=== PATIENT | female | born 1990 | race Caucasian/White ===

== ENCOUNTER 2017-04-13 22:56 | Emergency (ER) | payer MEDICAID ==
[~2017-04-13] VITALS: Ht 149.9 cm; Wt 55.3 kg
[2017-04-13 23:13] VITALS: BP_SYST 134
[2017-04-13] MEDS ORDERED: NACL 0.9% 1,000 ML IV ONE (23:46)
[2017-04-14 00:17] LABS: BASOPHILS # (AUTO) 0.1 K/uL (0.0-0.2); BASOPHILS % (AUTO) 0.6 % (0.0-2.0); EOSINOPHILS # (AUTO) 0.1 K/uL (0.0-0.4); EOSINOPHILS % (AUTO) 0.5 % (0.0-4.0); HEMATOCRIT 50.2 % (36-48); HEMOGLOBIN 16.6 g/dL (12.0-16.0); LYMPHOCYTES # (AUTO) 1.8 K/uL (1.0-5.5); LYMPHOCYTES % (AUTO) 14.7 % (20.5-51.5); MEAN CORPUSCULAR HEMOGLOBIN 28 pg (27-31); MEAN CORPUSCULAR HGB CONC 33 % (32-36); MEAN CORPUSCULAR VOLUME 85 fL (79.0-98.0); MONOCYTES # (AUTO) 0.2 K/uL (0.0-1.0); NEUTROPHILS # (AUTO) 9.9 K/uL (1.8-7.7); NEUTROPHILS % (AUTO) 82.2 % (40.0-70.0); PLATELET COUNT (AUTO) 334 K/uL (130-430); RED BLOOD CELL COUNT(AUTO) 5.91 MIL/uL (4.2-6.2); WHITE BLOOD COUNT (AUTO) 12.1 K/uL (4.8-10.8)
[2017-04-14 00:24] LABS: ANION GAP 11 (5-15); CALCIUM 9.8 mg/dL (8.4-11.0); CHLORIDE 102 mmol/L (98-107); CREATININE 1.01 mg/dL (0.55-1.30); GLUCOSE 104 mg/dL (70-99); POTASSIUM 3.9 mmol/L (3.5-5.1); SODIUM SERUM 138 mmol/L (136-145); UREA NITROGEN, BLOOD 11 mg/dL (8-21)
[2017-04-14 00:26] LABS: SALICYLATE 1 mg/dL (3-30)
[2017-04-14 00:28] LABS: GFR AFRICAN AMERICAN 85 mL/min (>90)
[2017-04-14 00:29] LABS: BILIRUBIN,URINE NEGATIVE (NEGATIVE); BLOOD, URINE NEGATIVE (NEGATIVE); CLARITY/URINE CLEAR (CLEAR); COLOR,URINE YELLOW (YELLOW); GLUCOSE,URINE NEGATIVE (NEGATIVE); KETONES,URINE 1+ (NEGATIVE); LEUKOCYTE ESTERASE ,URINE NEGATIVE (NEGATIVE); NITRITE, URINE NEGATIVE (NEGATIVE); PROTEIN URINE 1+ (NEGATIVE); UROBILINOGEN,URINE 0.2 (0.2-1.0)
[2017-04-14 00:30] LABS: ALANINE AMINOTRANSFERASE 27 U/L (12-78); ASPARTATE AMINOTRANSFERASE 20 U/L (10-37); TOTAL BILIRUBIN 0.7 mg/dL (0.0-1.0); TOTAL PROTEIN, SERUM 8.5 g/dL (6.4-8.3)
[2017-04-14 00:36] LABS: ACETAMINOPHEN < 1 ug/mL (1-30)
[2017-04-14 00:37] LABS: ALCOHOL, BLOOD < 3 mg/dL (<10)
[2017-04-14 00:39] LABS: BACTERIA,URINE FEW /HPF (None Seen); HYALINE CASTS, URINE 0-10 /LPF (None Seen); MUCUS,URINE 1+ /LPF (None Seen); RBC,URINE 0-3 /HPF (0-3); URINE AMORPHOUS URATE 1+ /HPF (None Seen)
[2017-04-14 00:40] LABS: BARBITURATE, URINE NEGATIVE (NEG <=200); BENZODIAZEPINE, URINE NEGATIVE (NEG <=150); CANNABINOID, URINE NEGATIVE (NEG <=50); COCAINE, URINE NEGATIVE (NEG <=150); METHAMPHETAMINES SCREEN,URINE NEGATIVE (NEG <=500); OPIATE, URINE NEGATIVE (NEG <=100); PHENCYCLIDINE SCREEN,URINE NEGATIVE (NEG <=25); UR TRICYCLIC ANTIDEPRESSANTS NEGATIVE (NEG <=300); URINE AMPHETAMINE POSITIVE (NEG <=500); URINE METHADONE NEGATIVE (NEG <=200); URINE OXYCODONE SCREEN NEGATIVE (NEG <=100); URINE PROPOXYPHENE SCREEN NEGATIVE (NEG <=300)
[2017-04-14 01:15] VITALS: BP_SYST 128
== END 2017-04-14 01:15 | disposition home or self-care (01) ==
LOC: SED 22:56
DX: Z00.00 Encounter for general adult medical examination without abnormal findings (principal); F15.10 Other stimulant abuse, uncomplicated; R03.0 Elevated blood-pressure reading, without diagnosis of hypertension; Z88.1 Allergy status to other antibiotic agents
CPT/HCPCS: 36415; 80053; 80307; 81000; 81025; 85025; 96360; 99284; G0480; G0481; G0482; J7030

== ENCOUNTER 2017-09-01 12:23 | Emergency (ER) | payer MEDICAID ==
[~2017-09-01] VITALS: Ht 152.4 cm; Wt 59.0 kg
[2017-09-01 12:40] VITALS: BP_SYST 93
[2017-09-01] MEDS ORDERED: NACL 0.9% 1,000 ML IV ONE (13:07)
[2017-09-01] MEDS ORDERED: KETOROLAC TROMETHAMINE 30 MG VIAL IVP ONE (13:15)
[2017-09-01] MEDS ORDERED: ONDANSETRON HCL 4 MG/2 ML VIAL IVP ONE (13:15)
[2017-09-01 13:41] LABS: CALCIUM 7.4 mg/dL (8.4-11.0); CREATININE 0.66 mg/dL (0.55-1.30); POTASSIUM 3.8 mmol/L (3.5-5.1)
[2017-09-01 13:45] LABS: ALBUMIN 3.5 g/dL (3.4-4.8); TOTAL BILIRUBIN 0.3 mg/dL (0.0-1.0)
[2017-09-01 13:53] LABS: BASOPHILS % (AUTO) 0.3 % (0.0-2.0); EOSINOPHILS # (AUTO) 0.1 K/uL (0.0-0.4); EOSINOPHILS % (AUTO) 2.5 % (0.0-4.0); HEMATOCRIT 35.4 % (36-48); HEMOGLOBIN 12.1 g/dL (12.0-16.0); LYMPHOCYTES # (AUTO) 1.2 K/uL (1.0-5.5); LYMPHOCYTES % (AUTO) 20.8 % (20.5-51.5); MEAN CORPUSCULAR HEMOGLOBIN 30 pg (27-31); MEAN CORPUSCULAR HGB CONC 34 % (32-36); MEAN CORPUSCULAR VOLUME 86 fL (79.0-98.0); MONOCYTES # (AUTO) 0.3 K/uL (0.0-1.0); MONOCYTES % (AUTO) 4.8 % (1.7-9.3); NEUTROPHILS # (AUTO) 4.4 K/uL (1.8-7.7); NEUTROPHILS % (AUTO) 71.6 % (40.0-70.0); PLATELET COUNT (AUTO) 234 K/uL (130-430); RED CELL DISTRIBUTION WIDTH 12.7 % (9.0-15.0)
[2017-09-01] MEDS ORDERED: PROCHLORPERAZINE EDISYLATE 10 MG/2 ML VIAL IVP ONE (14:00)
[2017-09-01] MEDS ORDERED: fentaNYL CITRATE/PF 100 MCG/2 ML AMP IVP ONE (14:00)
[2017-09-01 15:24] VITALS: BP_SYST 96
== END 2017-09-01 15:24 | disposition home or self-care (01) ==
LOC: SED 12:23
DX: R10.9 Unspecified abdominal pain (principal); R11.10 Vomiting, unspecified; R19.7 Diarrhea, unspecified; F17.200 Nicotine dependence, unspecified, uncomplicated; Z71.6 Tobacco abuse counseling; Z88.1 Allergy status to other antibiotic agents
CPT/HCPCS: 36415; 80053; 83690; 85025; 96361; 96374; 96375; 99284; J0780; J1885; J2405; J3010; J7030

== ENCOUNTER 2017-09-30 18:32 | Emergency (ER) | payer MEDICAID ==
[~2017-09-30] VITALS: Ht 152.4 cm; Wt 59.0 kg
[2017-09-30 18:37] VITALS: BP_SYST 122
[2017-09-30] MEDS ORDERED: KETOROLAC TROMETHAMINE 60 MG/2 ML VIAL IM ONE (19:00)
== END 2017-09-30 19:30 | disposition home or self-care (01) ==
LOC: SED 18:32
DX: R10.2 Pelvic and perineal pain (principal); R11.0 Nausea
CPT/HCPCS: 81025; 96372; 99283; J1885

== ENCOUNTER 2017-10-08 20:00 | Emergency (ER) | payer MEDICAID ==
[~2017-10-08] VITALS: Ht 152.4 cm; Wt 59.0 kg
[2017-10-08 20:07] VITALS: BP_SYST 139
[2017-10-08 20:52] LABS: BASOPHILS # (AUTO) 0.1 K/uL (0.0-0.2); BASOPHILS % (AUTO) 0.9 % (0.0-2.0); EOSINOPHILS % (AUTO) 0.3 % (0.0-4.0); HEMATOCRIT 45.1 % (36-48); HEMOGLOBIN 14.8 g/dL (12.0-16.0); MEAN CORPUSCULAR HEMOGLOBIN 28 pg (27-31); MEAN CORPUSCULAR HGB CONC 33 % (32-36); MEAN CORPUSCULAR VOLUME 85 fL (79.0-98.0); MONOCYTES # (AUTO) 0.5 K/uL (0.0-1.0); MONOCYTES % (AUTO) 5.8 % (1.7-9.3); NEUTROPHILS # (AUTO) 5.9 K/uL (1.8-7.7); PLATELET COUNT (AUTO) 359 K/uL (130-430); RED BLOOD CELL COUNT(AUTO) 5.33 MIL/uL (4.2-6.2); RED CELL DISTRIBUTION WIDTH 12.1 % (9.0-15.0); WHITE BLOOD COUNT (AUTO) 8.5 K/uL (4.8-10.8)
[2017-10-08 21:07] LABS: CALCIUM 9.4 mg/dL (8.4-11.0); CREATININE 0.95 mg/dL (0.55-1.30); POTASSIUM 3.5 mmol/L (3.5-5.1)
[2017-10-08 21:19] LABS: ALBUMIN 4.4 g/dL (3.4-4.8); THYROID STIMULATING HORMONE 0.88 uIu/mL (0.34-4.82); TOTAL BILIRUBIN 0.5 mg/dL (0.0-1.0)
[2017-10-08 22:17] LABS: BILIRUBIN,URINE NEGATIVE (NEGATIVE); BLOOD, URINE 2+ (NEGATIVE); CLARITY/URINE CLOUDY (CLEAR); COLOR,URINE YELLOW (YELLOW); GLUCOSE,URINE NEGATIVE (NEGATIVE); KETONES,URINE NEGATIVE (NEGATIVE); LEUKOCYTE ESTERASE ,URINE TRACE (NEGATIVE); NITRITE, URINE NEGATIVE (NEGATIVE); PH,URINE 8.5 (5.0-8.0); PROTEIN URINE 3+ (NEGATIVE); UROBILINOGEN,URINE 0.2 (0.2-1.0)
[2017-10-08 22:23] LABS: BACTERIA,URINE MODERATE /HPF (None Seen)
[2017-10-08 22:24] LABS: MUCUS,URINE 2+ /LPF (None Seen); URINE AMORPHOUS PHOSPHATES 1+ /HPF (None Seen)
[2017-10-08] MEDS ORDERED: GENTAMICIN SULFATE 80 MG/ 2ML VIAL IM ONE (23:00)
[2017-10-08] MEDS ORDERED: AZITHROMYCIN 250 MG TABLET PO ONE (23:00)
[2017-10-08 23:40] VITALS: BP_SYST 133
[2017-10-12 09:23] LABS: CHLAMYDIA TRACHOMATIS NAA Negative (Negative)
[2017-10-12 09:24] LABS: NEISSERIA GONORRHOEAE NAA Negative (Negative)
== END 2017-10-08 23:40 | disposition home or self-care (01) ==
LOC: SED 20:00
DX: R10.2 Pelvic and perineal pain (principal); Z88.1 Allergy status to other antibiotic agents; F17.200 Nicotine dependence, unspecified, uncomplicated
CPT/HCPCS: 36415; 80053; 81000; 81025; 84443; 85025; 86592; 87086; 87491; 87591; 99284; Q0144

== ENCOUNTER 2018-08-30 20:42 | Emergency (ER) | payer MEDICAID ==
[~2018-08-30] VITALS: Ht 152.4 cm; Wt 66.2 kg
[2018-08-30 20:47] VITALS: BP_SYST 100
[2018-08-30] MEDS ORDERED: KETOROLAC TROMETHAMINE 30 MG VIAL IM ONE (21:15)
[2018-08-30] MEDS ORDERED: CLINDAMYCIN PHOSPHATE 300 MG/2 ML VIAL IM ONE (21:15)
[2018-08-30 21:35] LABS: BASOPHILS # (AUTO) 0.1 K/uL (0.0-0.2); BASOPHILS % (AUTO) 0.8 % (0.0-2.0); EOSINOPHILS # (AUTO) 0.2 K/uL (0.0-0.4); EOSINOPHILS % (AUTO) 1.9 % (0.0-4.0); HEMATOCRIT 42.9 % (36-48); HEMOGLOBIN 13.9 g/dL (12.0-16.0); LYMPHOCYTES # (AUTO) 1.2 K/uL (1.0-5.5); LYMPHOCYTES % (AUTO) 13.6 % (20.5-51.5); MEAN CORPUSCULAR HEMOGLOBIN 28 pg (27-31); MEAN CORPUSCULAR HGB CONC 32 % (32-36); MEAN CORPUSCULAR VOLUME 87 fL (79.0-98.0); MONOCYTES # (AUTO) 0.6 K/uL (0.0-1.0); MONOCYTES % (AUTO) 6.2 % (1.7-9.3); NEUTROPHILS # (AUTO) 6.9 K/uL (1.8-7.7); NEUTROPHILS % (AUTO) 77.5 % (40.0-70.0); PLATELET COUNT (AUTO) 267 K/uL (130-430); RED BLOOD CELL COUNT(AUTO) 4.94 MIL/uL (4.2-6.2)
[2018-08-30 21:47] LABS: CALCIUM 8.8 mg/dL (8.4-11.0); CREATININE 0.88 mg/dL (0.55-1.30); POTASSIUM 3.6 mmol/L (3.5-5.1)
[2018-08-30 21:52] LABS: ALBUMIN 3.6 g/dL (3.4-4.8); TOTAL BILIRUBIN 0.3 mg/dL (0.0-1.0)
[2018-08-30] MEDS ORDERED: MORPHINE 4 MG/ML INJ. SYRINGE IM ONE (22:15)
[2018-08-30 23:20] VITALS: BP_SYST 122
== END 2018-08-30 23:20 | disposition home or self-care (01) ==
LOC: SED 20:42
DX: L02.31 Cutaneous abscess of buttock (principal); R03.0 Elevated blood-pressure reading, without diagnosis of hypertension; Z88.1 Allergy status to other antibiotic agents
CPT/HCPCS: 36415; 80053; 85025; 87040; 96372; 99284; J1885; J2270; J3490

== ENCOUNTER 2018-08-31 00:13 | Emergency (ER) | payer MEDICAID ==
[~2018-08-31] VITALS: Ht 152.4 cm; Wt 66.2 kg
[2018-08-31 00:20] VITALS: BP_SYST 109
[2018-08-31 00:45] VITALS: BP_SYST 109
[2018-08-31] MEDS ORDERED: MORPHINE 2 MG/ML INJ. SYRINGE IM ONE (00:45)
[2018-08-31] MEDS ORDERED: MORPHINE 2 MG/ML INJ. SYRINGE IVP ONE (00:45)
== END 2018-08-31 00:45 | disposition home or self-care (01) ==
LOC: SED 00:13
DX: L02.31 Cutaneous abscess of buttock (principal); Z88.1 Allergy status to other antibiotic agents
CPT/HCPCS: 96372; 99283; J2270

== ENCOUNTER 2018-09-02 17:51 | Emergency (ER) | payer MEDICAID ==
[~2018-09-02] VITALS: Ht 152.4 cm; Wt 66.2 kg
[2018-09-02 17:51] VITALS: BP_SYST 107
--- NOTE | 2018-09-02 17:52 | NUR ---
BROUGHT BACK TO BED #5 AND TRIAGED. REPORT GIVEN TO JACQUIE
--- NOTE | 2018-09-02 17:52 | NUR ---
PT STATES THAT SHE NEEDS HER WOUND TO LEFT BUTTOCK CLEANED AND TO HAVE GAUZE REMOVED. PT STATES THAT SHE NEEDS A MORPHINE INJECTION BEFORE TOUCHING HER. SHE STATES SHE HAS BEEN IN PAIN SINCE THE I AND D THAT WAS DONE ON 08/30/2018. PT STATES THAT SHE WAS GIVEN [facility] HERE A FEW DAYS AGO AND THEY DIDN'T EVEN LAST HER ONE DAY.
--- NOTE | 2018-09-02 18:00 | NUR ---
Pt C/O pain to Lt buttock x 4 days. Pt states she has an abcess on the Lt buttock that was accessed and treated at [facility] 4 days ago. The pt is complaining of 9/10 pain and states she needs a morphine shot. Pt states she needs alot of pain medication due to her high tolerance. The abcess was accessed, showed no signs of infection and is approximately 1/4 inch in diameter. Pt is currently laying in bed reading a magazine requesting pain medication be given as soon as possible.
--- NOTE | 2018-09-02 18:33 | NUR ---
ER at bedside examining patient.
[2018-09-02] MEDS ORDERED: LIDOCAINE/PRILOCAINE 5 GM CREAM (EMLA) TP ONE (18:45)
--- NOTE | 2018-09-02 18:45 | NUR ---
Emla was administered to the pt's wound and transparent dressing was placed. Pt tolerated proceedure well, will continue to monitor.
--- NOTE | 2018-09-02 19:14 | NUR ---
Pt resting quietly in bed. Report given to Lino HURST
[2018-09-02 19:25] VITALS: BP_SYST 110
--- NOTE | 2018-09-02 19:25 | NUR ---
Patient given written and verbal discharge instructions and verbalizes understanding. ER MD discussed with patient the results and treatment provided. Patient in stable condition. ID arm band removed. No Rx given. Patient educated on pain management and to follow up with PMD. Pain Scale 2/10. Opportunity for questions provided and answered. Medication side effect fact sheet provided.
== END 2018-09-02 19:25 | disposition home or self-care (01) ==
LOC: SED 17:51
DX: Z48.01 Encounter for change or removal of surgical wound dressing (principal); Z88.1 Allergy status to other antibiotic agents
CPT/HCPCS: 99282

== ENCOUNTER 2018-09-06 20:41 | Emergency (ER) | payer MEDICAID ==
[~2018-09-06] VITALS: Ht 152.4 cm; Wt 66.2 kg
[2018-09-06 21:02] VITALS: BP_SYST 108
== END 2018-09-06 22:14 | disposition home or self-care (01) ==
LOC: SED 20:41
DX: Z48.01 Encounter for change or removal of surgical wound dressing (principal); R05 Cough; Z88.1 Allergy status to other antibiotic agents
CPT/HCPCS: 99283

== ENCOUNTER 2021-01-20 23:58 | Emergency (ER) | payer MEDICAID ==
[~2021-01-20] VITALS: Ht 152.4 cm; Wt 102.1 kg
[2021-01-21 00:14] VITALS: BP_SYST 127
[2021-01-21 01:13] LABS: BILIRUBIN,URINE NEGATIVE (NEGATIVE); BLOOD, URINE NEGATIVE (NEGATIVE); CLARITY/URINE CLEAR (CLEAR); COLOR,URINE YELLOW (YELLOW); GLUCOSE,URINE NEGATIVE (NEGATIVE); KETONES,URINE NEGATIVE (NEGATIVE); LEUKOCYTE ESTERASE ,URINE NEGATIVE (NEGATIVE); NITRITE, URINE NEGATIVE (NEGATIVE); PROTEIN URINE NEGATIVE (NEGATIVE); UROBILINOGEN,URINE 0.2 (0.2-1.0)
[2021-01-21 02:17] VITALS: BP_SYST 112
== END 2021-01-21 02:17 | disposition home or self-care (01) ==
LOC: SED 23:58
DX: N89.8 Other specified noninflammatory disorders of vagina (principal); Z88.6 Allergy status to analgesic agent
CPT/HCPCS: 76830-TC; 76857; 81003; 81025; 99284

== ENCOUNTER 2021-02-21 19:38 | Emergency (ER) | payer MEDICAID ==
[~2021-02-21] VITALS: Ht 160 cm; Wt 78.5 kg
[2021-02-21 20:20] VITALS: BP_SYST 115
--- NOTE | 2021-02-21 21:40 | NUR ---
Placed in room 3. To gown for exam. Side rails up.
--- NOTE | 2021-02-21 21:45 | NUR ---
Pt walked into ED c/o possible foreign body in vagina. She reports having a tampon stuck in there another time. + white discharge, vaginal odor, -painful urination.
[2021-02-21 21:50] LABS: BILIRUBIN,URINE NEGATIVE (NEGATIVE); BLOOD, URINE NEGATIVE (NEGATIVE); CLARITY/URINE CLEAR (CLEAR); COLOR,URINE YELLOW (YELLOW); GLUCOSE,URINE NEGATIVE (NEGATIVE); KETONES,URINE TRACE (NEGATIVE); LEUKOCYTE ESTERASE ,URINE NEGATIVE (NEGATIVE); NITRITE, URINE NEGATIVE (NEGATIVE); PH,URINE 6.5 (5.0-8.0); PROTEIN URINE NEGATIVE (NEGATIVE); UROBILINOGEN,URINE 0.2 (0.2-1.0)
--- NOTE | 2021-02-21 21:50 | NUR ---
Dr. Higginbotham at bedside for vaginal exam
[2021-02-21] MEDS ORDERED: METR500T PO ×2 (22:00→22:16)
[2021-02-21 22:12] VITALS: BP_SYST 115
--- NOTE | 2021-02-21 22:12 | NUR ---
Patient given written and verbal discharge instructions and verbalizes understanding. ER MD discussed with patient the results and treatment provided. Patient in stable condition. ID arm band removed. Rx of FLAGYL given. Patient educated on pain management and to follow up with PMD. Opportunity for questions provided and answered. Medication side effect fact sheet provided.
[2021-02-21] MEDS: metroNIDAZOLE 500 MG TABLET PO ONE (22:26)
== END 2021-02-21 22:12 | disposition home or self-care (01) ==
LOC: SED 19:38
DX: N76.0 Acute vaginitis (principal); Z88.1 Allergy status to other antibiotic agents
CPT/HCPCS: 81003; 99283

== ENCOUNTER 2021-05-10 14:36 | Emergency (ER) | payer MEDICAID ==
[~2021-05-10] VITALS: Ht 152.4 cm; Wt 90.7 kg
[~2021-05-10 14:36] MED LIST: METR500T PO
[2021-05-10 14:46] VITALS: BP_SYST 118
[2021-05-10] MEDS ORDERED: METR500T PO (17:28)
[2021-05-10 17:37] VITALS: BP_SYST 118
== END 2021-05-10 17:36 | disposition home or self-care (01) ==
LOC: SED 14:36
DX: N76.0 Acute vaginitis (principal); B96.89 Other specified bacterial agents as the cause of diseases classified elsewhere; Z88.1 Allergy status to other antibiotic agents; Z79.899 Other long term (current) drug therapy
CPT/HCPCS: 81002; 81025; 87070-TC; 87205-TC; 87210-TC; 99284

== ENCOUNTER 2022-04-21 20:06 | Emergency (ER) | payer MEDICAID ==
[~2022-04-21] VITALS: Ht 152.4 cm; Wt 86.2 kg
[2022-04-21 20:42] VITALS: BP_SYST 114
--- NOTE | 2022-04-21 21:25 | NUR ---
Patient ambulatory to bed 1 for evaluation
[2022-04-21 21:30] VITALS: BP_SYST 114
--- NOTE | 2022-04-21 21:30 | NUR ---
ASSISSTED PROVIDER WITH VAGINAL EXAM. NO TAMPON FOUND. PT TOLERATED WELL.
== END 2022-04-21 21:44 | disposition home or self-care (01) ==
LOC: SED 20:06
DX: T19.2XXA Foreign body in vulva and vagina, initial encounter (principal); Z88.1 Allergy status to other antibiotic agents; X58.XXXA Exposure to other specified factors, initial encounter; Y93.89 Activity, other specified; Y92.89 Other specified places as the place of occurrence of the external cause; Y99.8 Other external cause status
CPT/HCPCS: 99281